=== PATIENT | female | born 1965 | race Caucasian/White ===

== ENCOUNTER → 2016-11-14 | Outpatient (CLI) | payer BC ==
--- NOTE | 2016-11-14 15:18 | MR ---
EXAMINATION TYPE: MR shoulder RT wo con DATE OF EXAM: 11/14/2016 2:02 PM COMPARISON: NONE HISTORY: Right shoulder pain x 2 years. TECHNIQUE: Multiplanar multispin echo imaging of the right shoulder was performed. FINDINGS: Rotator cuff : Full thickness partial tear is noted involving the supraspinatus tendon near its humer al insertion. This is superimposed upon thickening and heterogeneity of the supraspinatus tendon comp atible with chronic tendinopathy. Small amount of fluid is seen within the subacromial subdeltoid bur sa. The remaining rotator cuff tendons are intact. Bursa: Small amount of fluid is seen within the subacromial subdeltoid bursa Musculature: There is no muscular tear, contusion, or atrophy. Acromioclavicular joint : There is evidence of moderate AC joint arthropathy. Lateral downsloping of the acromion and subacromial spurring resulting in impingement. Osseous structures : There are no fra ctures or regions of abnormal bone marrow signal intensity. Long biceps tendon : The biceps tendon is normally situated within the bicipital groove. No complete or partial biceps tendon tear is present. Glenohumeral Joint fluid : There is no glenohumeral joint effusion. Cartilage and Bone : Mild degenerative cystic change greater humeral tuberosity. No focal hyaline car tilage defects are noted. No Hill-Sachs, reverse Hill-Sachs, or bony Bankart lesions are seen. Labrum : There are no SLAP or soft tissue Bankart lesions. No paralabral cysts are seen. OTHER FINDINGS : none IMPRESSION: 1. Full thickness partial tear is noted involving the supraspinatus tendon near its humeral insertion . This is superimposed upon thickening and heterogeneity of the supraspinatus tendon compatible with chronic tendinopathy.
== END | disposition home or self-care (01) ==
LOC: RADMRIMAIN 13:23
PROVIDERS: ATTEND Orthopaedic Surgery
DX: M75.101 Unspecified rotator cuff tear or rupture of right shoulder, not specified as traumatic (principal)

== ENCOUNTER → 2017-02-20 | Outpatient (CLI) | payer BC ==
[2017-02-20 19:41] LABS: ALT 33 U/L (9-52); AST 19 U/L (14-36); Alkaline Phosphatase 74 U/L (38-126); Anion Gap 13 mmol/L; Basophils % (A) 1 %; Blood Urea Nitrogen 14 mg/dL (7-17); CH 31.4; CHCM 34.5; Calcium 10.1 mg/dL (8.4-10.2); Carbon Dioxide 24 mmol/L (22-30); Chloride 103 mmol/L (98-107); Cholesterol 192 mg/dL (<200); Eosinophils # (A) 0.1 k/uL (0-0.7); Eosinophils % (A) 1 %; Glucose 123 mg/dL (74-99); HCT 49.3 % (34.0-46.0); HDL Cholesterol 44 mg/dL (40-60); HDW 2.66; HGB 16.6 gm/dL (11.4-16.0); Luc # (Auto) 0.09; Luc % (Auto) 1; Lymphocytes # (A) 2.6 k/uL (1.0-4.8); Lymphocytes % (A) 29 %; MCH 30.8 pg (25.0-35.0); MCHC 33.7 g/dL (31.0-37.0); MCV 91.4 fL (80.0-100.0); Mean Platelet Volume 8.1; Monocytes # (A) 0.3 k/uL (0-1.0); Monocytes % (A) 4 %; Neutrophils # (A) 5.8 k/uL (1.3-7.7); Neutrophils % (A) 65 %; Non-African American GFR(MDRD) >60 (>60 ml/min/1.73 sqM); Potassium 3.9 mmol/L (3.5-5.1); RBC 5.39 m/uL (3.80-5.40); RDW 13.6 % (11.5-15.5); Sodium 140 mmol/L (137-145); Total Bilirubin 0.7 mg/dL (0.2-1.3); Triglycerides 198 mg/dL (<150); WBC 8.9 k/uL (3.8-10.6); WBC (Perox) 9.46
== END ==
LOC: MMGSC 10:11
PROVIDERS: ATTEND Family Medicine
DX: I10 Essential (primary) hypertension (principal); E78.00 Pure hypercholesterolemia, unspecified; F10.21 Alcohol dependence, in remission
CPT/HCPCS: 36415; 80053; 80061; 84439; 84443; 85025

== ENCOUNTER → 2017-05-06 | Outpatient (CLI) | payer BC ==
[2017-05-06 18:56] LABS: Basophils # (A) 0.1 k/uL (0-0.2); Basophils % (A) 1 %; CHCM 35.2; Eosinophils # (A) 0.2 k/uL (0-0.7); Eosinophils % (A) 2 %; HCT 42.2 % (34.0-46.0); HDW 2.82; Luc # (Auto) 0.15; Luc % (Auto) 2; Lymphocytes # (A) 3.6 k/uL (1.0-4.8); Lymphocytes % (A) 37 %; MCH 31.5 pg (25.0-35.0); MCHC 35.6 g/dL (31.0-37.0); MCV 88.4 fL (80.0-100.0); Mean Platelet Volume 7.6; Monocytes # (A) 0.4 k/uL (0-1.0); Monocytes % (A) 4 %; Neutrophils # (A) 5.3 k/uL (1.3-7.7); Neutrophils % (A) 55 %; RBC 4.77 m/uL (3.80-5.40); RDW 13.5 % (11.5-15.5); WBC 9.6 k/uL (3.8-10.6); WBC (Perox) 9.41
[2017-05-06 19:06] LABS: ALT 31 U/L (9-52); AST 16 U/L (14-36); Alkaline Phosphatase 75 U/L (38-126); Amylase 43 U/L (30-110); Anion Gap 12 mmol/L; Blood Urea Nitrogen 16 mg/dL (7-17); Calcium 9.7 mg/dL (8.4-10.2); Carbon Dioxide 25 mmol/L (22-30); Chloride 106 mmol/L (98-107); Glucose 108 mg/dL (74-99); Non-African American GFR(MDRD) >60 (>60 ml/min/1.73 sqM); Potassium 4.1 mmol/L (3.5-5.1); Sodium 143 mmol/L (137-145); Total Bilirubin 0.4 mg/dL (0.2-1.3)
== END | disposition home or self-care (01) ==
LOC: MMGSC 16:45
PROVIDERS: ATTEND Family Medicine
DX: R10.12 Left upper quadrant pain (principal)
CPT/HCPCS: 36415; 80053; 82150; 83690; 85025

== ENCOUNTER → 2017-06-04 | Outpatient (CLI) | payer BC ==
--- NOTE | 2017-06-04 11:58 | US ---
EXAMINATION TYPE: US abdomen complete DATE OF EXAM: 06/04/2017 COMPARISON: NONE CLINICAL HISTORY: 52-year-old female R10.12 LUQ Pain. LEFT subcostal pain at site of scar from bariat ofe surgery, h/o colitis. TECHNIQUE: Multiple sonographic images of the abdomen are obtained. FINDINGS: Liver Length: 17.5 cm Gallbladder Wall: 0.2 cm CBD: 0.4 cm Spleen: 11.4 cm Right Kidney: 12.4 x 4.3 x 5.4 cm Left Kidney: 13.0 x 5.1 x 6.6 cm Pancreas: wnl Liver: wnl Gallbladder: wnl Evidence for sonographic Patrick's sign: no CBD: wnl Spleen: wnl Right Kidney: wnl Left Kidney: wnl Upper IVC: wnl Abd Aorta: Upper abdominal aorta is ectatic at 2.7 x 2.5 cm. The remainder is normal caliber. AGGREGATE CONVEYOR OPERATOR NOTES: No abnormality seen at LUQ area of pain IMPRESSION: 1. Ectatic upper abdominal aorta 2.7 cm. 2. Borderline hepatomegaly. 3. Otherwise, unremarkable sonographic examination of the abdomen. 4. Targeted scanning along the left upper quadrant site of pain shows no discrete sonographic abnorma lity.
== END | disposition home or self-care (01) ==
LOC: RADUSWWP 09:28
PROVIDERS: ATTEND Family Medicine
DX: I77.811 Abdominal aortic ectasia (principal); R16.0 Hepatomegaly, not elsewhere classified
CPT/HCPCS: 76700

== ENCOUNTER 2017-06-17 10:27 | Day surgery (SDC) | payer BC ==
[2017-06-13 14:07] VITALS: BMI 32.5
[~2017-06-17 10:27] MED LIST: LACTATED RINGERS 1,000 ML IV SCH; LIDOCAINE 1% 20 ML VIAL (10MG/ML) FOR IV START INTRADERMA PRN
[2017-06-17 10:39] VITALS: TEMP 98
[2017-06-17] MEDS ORDERED: LACTATED RINGERS 1,000 ML IV ONE (10:40)
[2017-06-17] MEDS ORDERED: PROPOFOL 10 MG/ML 20 ML VIAL IV ONE (11:51)
[2017-06-17] MEDS ORDERED: LIDOCAINE 1% INJ 10MG/ML (20 ML MDV) ONE (11:51)
[2017-06-17 12:10] VITALS: RESP 16
--- NOTE | 2017-06-17 12:11 | P.PCN ---
Date of Procedure: 06/17/17 Preoperative Diagnosis: Postoperative Diagnosis: Procedure(s) Performed: Procedure: Esophagogastroduodenoscopy and biopsy. Preoperative diagnosis: Chronic reflux symptoms symptomatic despite treatment with intermittent dysphagia. Postoperative diagnosis: 1. Small sliding hiatal hernia with no obvious esophagitis or complicated reflux disease. 2. Mild antral gastritis. 3. Multiple biopsies obtained from the duodenum, antrum and esophagus. Preparation sedation: Was provided by anesthesia. Brief clinical history: The patient is a 52-year-old female who is referred for this evaluation because of history of chronic gastroesophageal reflux. The patient has been on omeprazole with ongoing issues despite treatment. She has heartburn and intermittent dysphagia. This evaluation is to assess for the degree of esophagitis and rule out complicated reflux disease or other pathology. Procedure: With the patient on her left lateral decubitus position and after informed consent and adequate sedation, I passed the Olympus-GIF 160 video upper endoscope through the cricopharyngeus down the esophagus. GE junction was around 39-40 cm from the incisors and there was a very small sliding hiatal hernia with no evidence of esophagitis or complicated reflux disease. The endoscope was then passed into the stomach which was insufflated with air and inspected in detail including the retroflex view in the cardia. There was some mottling and erythema in the antrum but no ulcers or erosions. Pyloric channel , duodenal bulb, post bulbar area and descending duodenum were essentially within normal limits. However, because of her symptoms, I obtained biopsies from the duodenum in addition to biopsies from the antrum and esophagus then the endoscope was withdrawn. The patient tolerated the procedure well. Plan: The patient was reassured. Will await pathology results. She will continue antireflux diet and measures and her current therapy. Further plans based on her course and biopsy results. She will follow-up with you as planned and I will be happy to see in the office of his symptoms persist. Implants: Indications for Procedure: Operative Findings: Description of Procedure:
[2017-06-17 12:40] VITALS: BP 136/84; PULSE 66
== END 2017-06-17 12:46 | disposition home or self-care (01) ==
LOC: ORWHC2ENDO 10:27
DX: K29.50 Unspecified chronic gastritis without bleeding (principal); K44.9 Diaphragmatic hernia without obstruction or gangrene; K21.9 Gastro-esophageal reflux disease without esophagitis; I10 Essential (primary) hypertension; J45.909 Unspecified asthma, uncomplicated; F41.9 Anxiety disorder, unspecified; F32.9 Major depressive disorder, single episode, unspecified; F43.10 Post-traumatic stress disorder, unspecified; E66.9 Obesity, unspecified; F17.200 Nicotine dependence, unspecified, uncomplicated; Z79.899 Other long term (current) drug therapy
CPT/HCPCS: 88305; 88342; 43239; J2001; J2704

== ENCOUNTER → 2017-11-28 | Outpatient (CLI) | payer BC ==
[2017-11-28 20:06] LABS: Basophils # (A) 0.1 k/uL (0-0.2); Basophils % (A) 1 %; Eosinophils # (A) 0.1 k/uL (0-0.7); Eosinophils % (A) 1 %; HCT 48.2 % (34.0-46.0); HGB 15.9 gm/dL (11.4-16.0); Lymphocytes # (A) 3.3 k/uL (1.0-4.8); Lymphocytes % (A) 35 %; MCH 31.3 pg (25.0-35.0); MCHC 32.9 g/dL (31.0-37.0); MCV 95.1 fL (80.0-100.0); Mean Platelet Volume 8.5; Monocytes # (A) 0.4 k/uL (0-1.0); Monocytes % (A) 4 %; Neutrophils # (A) 5.5 k/uL (1.3-7.7); Neutrophils % (A) 57 %; Platelet Count 310 k/uL (150-450); RBC 5.07 m/uL (3.80-5.40); RDW 14.3 % (11.5-15.5); WBC 9.6 k/uL (3.8-10.6)
[2017-11-28 20:11] LABS: ALT 24 U/L (9-52); AST 17 U/L (14-36); Albumin 4.4 g/dL (3.5-5.0); Alkaline Phosphatase 75 U/L (38-126); Anion Gap 13 mmol/L; Blood Urea Nitrogen 13 mg/dL (7-17); Calcium 9.7 mg/dL (8.4-10.2); Carbon Dioxide 26 mmol/L (22-30); Chloride 103 mmol/L (98-107); Cholesterol 218 mg/dL (<200); Glucose 97 mg/dL (74-99); HDL Cholesterol 48 mg/dL (40-60); LDL Cholesterol,Calculated 129 mg/dL (0-99); Potassium 4.3 mmol/L (3.5-5.1); Sodium 142 mmol/L (137-145); Total Bilirubin 0.4 mg/dL (0.2-1.3); Total Protein 7.4 g/dL (6.3-8.2); Triglycerides 203 mg/dL (<150)
[2017-11-28 20:27] LABS: T4, Free (Free Thyroxine) 0.97 ng/dL (0.78-2.19)
[2017-11-29 02:35] LABS: Folate, Serum 3.3 ng/mL
[2017-11-29 02:36] LABS: Vitamin D 25 Hydroxy 7.4 ng/mL (30.0-100.0)
== END | disposition home or self-care (01) ==
LOC: MMGSC 12:06
PROVIDERS: ATTEND Family Medicine
DX: I10 Essential (primary) hypertension (principal); R53.83 Other fatigue; R07.89 Other chest pain
CPT/HCPCS: 36415; 80053; 80061; 82306; 82607; 82746; 84439; 84443; 85025

== ENCOUNTER → 2018-02-17 | Outpatient (CLI) | payer BC ==
[2018-02-18 02:08] LABS: Vitamin D 25 Hydroxy 46.2 ng/mL (30.0-100.0)
[2018-02-18 02:09] LABS: Folate, Serum 7.9 ng/mL
== END | disposition home or self-care (01) ==
LOC: MMGSC 15:38
PROVIDERS: ATTEND Family Medicine
DX: E55.9 Vitamin D deficiency, unspecified (principal); I10 Essential (primary) hypertension; G43.909 Migraine, unspecified, not intractable, without status migrainosus
CPT/HCPCS: 36415; 82306; 82607; 82746; 83735

== ENCOUNTER → 2018-06-12 | Outpatient (CLI) | payer BC ==
--- NOTE | 2018-06-16 13:28 | MM ---
Reason for exam: screening (asymptomatic). Last mammogram was performed 2 years and 10 months ago. History: Patient is postmenopausal and has history of other cancer at age 46. Physical Findings: A clinical breast exam by your physician is recommended on an annual basis and results should be correlated with mammographic findings. MG Screening Mammo w CAD Bilateral CC and MLO view(s) were taken. Prior study comparison: August 16, 2015, bilateral MG screening mammo w CAD. April 21, 2012, CAD bilateral diagnostic mammogram. The breast tissue is heterogeneously dense. This may lower the sensitivity of mammography. Focal asymmetry x 2 centrally, few sites. ASSESSMENT: Incomplete: need additional imaging evaluation, BI-RAD 0 RECOMMENDATION: Special view mammogram of both breasts. If lesion persists on supplemental views, image directed ultrasound is recommended. [facility] will attempt to contact patient to return for supplemental views and ultrasound if indicated.
== END | disposition home or self-care (01) ==
LOC: RADMAMWWP 12:53
PROVIDERS: ATTEND Family Medicine
DX: Z12.31 Encounter for screening mammogram for malignant neoplasm of breast (principal)
CPT/HCPCS: 77067

== ENCOUNTER → 2018-06-25 | Outpatient (CLI) | payer BC ==
--- NOTE | 2018-06-25 08:47 | MM ---
Reason for exam: additional evaluation requested from abnormal screening. Last mammogram was performed less than 1 month ago. History: Patient is postmenopausal and has history of other cancer at age 46. Physical Findings: Nurse did not find any significant physical abnormalities on exam. MG Work Up Mamm w CAD BILAT Bilateral CC and MLO view(s) were taken. Prior study comparison: June 12, 2018, bilateral MG screening mammo w CAD. August 16, 2015, bilateral MG screening mammo w CAD. The breast tissue is heterogeneously dense. This may lower the sensitivity of mammography. There is no discrete abnormality including area of concern. No significant new findings when compared with previous films. These results were verbally communicated with the patient and result sheet given to the patient on 06/25/18. ASSESSMENT: Negative, BI-RAD 1 RECOMMENDATION: Return to routine screening mammogram schedule for both breasts.
== END | disposition home or self-care (01) ==
LOC: RADMAMWWP 07:54
PROVIDERS: ATTEND Family Medicine
DX: R92.8 Other abnormal and inconclusive findings on diagnostic imaging of breast (principal)
CPT/HCPCS: 77066

== ENCOUNTER → 2018-11-30 | Outpatient (CLI) | payer BC ==
[2018-11-30 14:12] LABS: Basophils # (A) 0.1 k/uL (0-0.2); Basophils % (A) 1 %; Eosinophils # (A) 0.2 k/uL (0-0.7); Eosinophils % (A) 2 %; HCT 47.1 % (34.0-46.0); HGB 15.8 gm/dL (11.4-16.0); Lymphocytes # (A) 3.7 k/uL (1.0-4.8); Lymphocytes % (A) 34 %; MCH 30.6 pg (25.0-35.0); MCHC 33.4 g/dL (31.0-37.0); MCV 91.5 fL (80.0-100.0); Monocytes # (A) 0.4 k/uL (0-1.0); Monocytes % (A) 4 %; Neutrophils # (A) 6.3 k/uL (1.3-7.7); Neutrophils % (A) 59 %; Platelet Count 262 k/uL (150-450); RBC 5.15 m/uL (3.80-5.40); RDW 13.2 % (11.5-15.5); WBC 10.8 k/uL (3.8-10.6)
[2018-11-30 21:22] LABS: Albumin 4.8 g/dL (3.80-4.90); Albumin/Globulin Ratio 2.18 (1.60-3.17); Anion Gap 9.5 mmol/L (4.00-12.00); Calcium 9.5 mg/dL (8.7-10.3); Carbon Dioxide 23.5 mmol/L (21.6-31.8); Globulin 2.2 g/dL (1.6-3.3); Potassium 3.8 mmol/L (3.5-5.5); Total Bilirubin 0.3 mg/dL (0.3-1.2)
[2018-12-03 03:39] LABS: Hemoglobin A1C 7.2 % (4.0-6.0)
== END | disposition home or self-care (01) ==
LOC: LABWHC1 11:40
PROVIDERS: ATTEND Psychiatry & Neurology Neurology
DX: G43.711 Chronic migraine without aura, intractable, with status migrainosus (principal); G93.2 Benign intracranial hypertension; M54.81 Occipital neuralgia; R73.09 Other abnormal glucose
CPT/HCPCS: 36415; 80053; 83036; 85025

== ENCOUNTER → 2018-12-31 | Outpatient (CLI) | payer BC ==
--- NOTE | 2018-12-31 09:07 | US ---
EXAMINATION TYPE: US abdomen complete DATE OF EXAM: 12/31/2018 COMPARISON: US, CT CLINICAL HISTORY: R10.9 Abdominal pain. Right flank pain radiating to right groin; RUQ pain, colitis, lap band surgery with reversal/ mesh insertion EXAM MEASUREMENTS: Liver Length: 17.8 cm Gallbladder Wall: 0.2 cm CBD: 0.4 cm Spleen: 10.1 cm Right Kidney: 12.7 x 7.4 x 5.5 cm Left Kidney: 12.6 x 5.5 x 5.8 cm Pancreas: wnl Liver: fatty liver as is hyperechoic to right renal cortex; small area of focal sparing noted near g allbladder Gallbladder: wnl Evidence for sonographic Patrick's sign: no CBD: wnl Spleen: wnl, vessel velásquez are hyperechoic at hilum with some calcifications. Right Kidney: Column of Al is noted from cortex to hilum in multiple views Left Kidney: No hydronephrosis; benign junctional wedge fat defect is seen at periphery in lower amadeo e Upper IVC: wnl Abd Aorta: upper limits of normal for size in upper aorta. IMPRESSION: 1. Findings most compatible with hepatic steatosis and focal fatty sparing that could be confirmed wi th CT with contrast. This is new from the prior of 06/04/2017. 2. Again there is ectasia of the upper abdominal aorta as seen on the prior exam.
--- NOTE | 2018-12-31 09:25 | US ---
EXAMINATION TYPE: US pelvic complete DATE OF EXAM: 12/31/2018 COMPARISON: CT CLINICAL HISTORY: R10.9 Abdominal pain. Right flank pain radiating to RLQ; colitis; TECHNIQUE: Transabdominal (TA). Transabdominal sonographic images of the pelvis were acquired. Date of LMP: approximately age 40 EXAM MEASUREMENTS: Uterus: 7.7 x 4.3 x 2.7 cm Endometrial Stripe: 0.5 cm Right Ovary: 3.1 x 2.2 x 1.5 cm Left Ovary: 2.0 x 2.2 x 1.1 cm 1. Uterus: Anteverted; small Nabothian Cyst in cervix = 0.9 x 1.3 x 0.6cm 2. Endometrium: wnl for post menopausal patient 3. Right Ovary: wnl; color flow and PW Doppler is seen in right ovary to assess for radiating pain 4. Left Ovary: wnl 5. Bilateral Adnexa: wnl 6. Posterior cul-de-sac: wnl IMPRESSION: Unremarkable pelvic ultrasound. Endometrial thickness is within normal limits for a postm enopausal female.
== END | disposition home or self-care (01) ==
LOC: RADUSWWP 07:00
PROVIDERS: ATTEND Family Medicine
DX: I77.811 Abdominal aortic ectasia (principal)
CPT/HCPCS: 76700; 76856

== ENCOUNTER 2019-01-05 06:53 | Day surgery (SDC) | payer BC ==
[2019-01-01 12:14] VITALS: BMI 34.8
[~2019-01-05 06:53] MED LIST changes: -LIDOCAINE 1% 20 ML VIAL (10MG/ML) FOR IV START INTRADERMA PRN
[2019-01-05] MEDS ORDERED: LACTATED RINGERS 1,000 ML IV ONE (07:09)
[2019-01-05 07:21] VITALS: TEMP 97.3
[2019-01-05 07:23] LABS: Glucose,Whole Blood 173 mg/dL (75-99)
[2019-01-05] MEDS ORDERED: PROPOFOL 10 MG/ML 20 ML VIAL IV ONE (08:23)
[2019-01-05 09:01] VITALS: RESP 16
--- NOTE | 2019-01-05 09:01 | P.PCN ---
Date of Procedure: 01/05/19 Procedure(s) Performed: Procedure: Colonoscopy and biopsy and polypectomy. Preoperative diagnosis: Screening for neoplasia. Postoperative diagnosis: 1. Small sigmoid polyp snared but no large polyps or cancer. 2. Grade 2-3 internal hemorrhoids without bleeding at the time of this exam. 3. Biopsies obtained from the right colon because of her chronic diarrhea. Preparation: HalfLytely prep. Sedation: Was provided by anesthesia. Brief clinical history: The patient is a 53-year-old female who is scheduled for this evaluation for screening for neoplasia. She had a prior exam 6 or 7 years ago. The patient has chronic diarrhea and believes she had colitis but is not on any treatment. She has intermittent rectal bleeding which she believes is related to hemorrhoids. Procedure: With the patient on her left lateral decubitus position and after informed consent and adequate sedation, the perianal area was inspected and it did not show any fissures or fistulas. There were no masses felt on digital rectal examination. The Olympus CFH 190L video colonoscope was then inserted in the rectum in the usual fashion and advanced to the cecum. The mucosa appeared healthy. There was a small polyp in the midsigmoid which I snared and retrieved by suction. No obvious diverticular disease or other pathology. I obtained biopsies from the right colon to rule out microscopic colitis. I retroflexed the endoscope in the rectum before the endoscope was withdrawn. Grade 2-3 internal hemorrhoids were noted with no evidence of bleeding. The patient tolerated the procedure well. Plan: We will await pathology results. I anticipate repeating this examination in around 5 years. She will follow-up with you as planned.
[2019-01-05 09:25] VITALS: BP 109/71; PULSE 65
== END 2019-01-05 09:53 | disposition home or self-care (01) ==
LOC: ORWHC2ENDO 06:53
DX: Z12.11 Encounter for screening for malignant neoplasm of colon (principal); D12.5 Benign neoplasm of sigmoid colon; K64.8 Other hemorrhoids; Z88.8 Allergy status to other drugs, medicaments and biological substances; I10 Essential (primary) hypertension; E78.5 Hyperlipidemia, unspecified; J45.909 Unspecified asthma, uncomplicated; F17.210 Nicotine dependence, cigarettes, uncomplicated; E11.9 Type 2 diabetes mellitus without complications; M19.90 Unspecified osteoarthritis, unspecified site; Z79.899 Other long term (current) drug therapy
CPT/HCPCS: 88305; 45380; 45385; J2704

== ENCOUNTER 2019-07-10 13:14 | Observation (INO) | payer BC ==
[2019-07-10] MEDS ORDERED: ASPIRIN 81 MG PO STA (15:18)
[2019-07-10 15:50] LABS: Basophils # (A) 0.1 k/uL (0-0.2); Basophils % (A) 1 %; Eosinophils # (A) 0.2 k/uL (0-0.7); Eosinophils % (A) 2 %; HCT 45.3 % (34.0-46.0); HGB 15.3 gm/dL (11.4-16.0); Lymphocytes # (A) 3.6 k/uL (1.0-4.8); Lymphocytes % (A) 34 %; MCH 30.3 pg (25.0-35.0); MCHC 33.7 g/dL (31.0-37.0); MCV 89.7 fL (80.0-100.0); Mean Platelet Volume 7.1; Monocytes # (A) 0.4 k/uL (0-1.0); Monocytes % (A) 4 %; Neutrophils # (A) 5.9 k/uL (1.3-7.7); Neutrophils % (A) 57 %; Platelet Count 281 k/uL (150-450); RBC 5.05 m/uL (3.80-5.40); RDW 12.7 % (11.5-15.5); WBC 10.4 k/uL (3.8-10.6)
[2019-07-10 15:56] LABS: ALT 22 U/L (9-52); AST 26 U/L (14-36); African American GFR (CKD) >90 (>60 ml/min/1.73 sqM); Albumin 4.5 g/dL (3.5-5.0); Alkaline Phosphatase 65 U/L (38-126); Anion Gap 8 mmol/L; Blood Urea Nitrogen 15 mg/dL (7-17); Calcium 9.6 mg/dL (8.4-10.2); Carbon Dioxide 28 mmol/L (22-30); Chloride 104 mmol/L (98-107); Glucose 119 mg/dL (74-99); Magnesium 1.9 mg/dL (1.6-2.3); Potassium 4.5 mmol/L (3.5-5.1); Sodium 140 mmol/L (137-145); Total Bilirubin 0.6 mg/dL (0.2-1.3); Total Protein 7.5 g/dL (6.3-8.2)
[2019-07-10 16:01] LABS: INR 0.9 (<1.2); Partial Thromboplastin Time 27.3 sec (22.0-30.0); Prothrombin Time 9.5 sec (9.0-12.0)
--- NOTE | 2019-07-10 16:20 | ED ---
General Adult HPI - General Chief complaint: Chest Pain Stated complaint: Chest pain Time Seen by Provider: 07/10/19 14:01 Source: patient Mode of arrival: ambulatory Limitations: no limitations - History of Present Illness Initial comments: Dictation was produced using [employer] dictation software. please excuse any grammatical, word or spelling errors. Chief Complaint: 84-year-old female with asthma, hypertension presents with chest pain. History of Present Illness: Patient's 54-year-old female presents with chief plate of chest pain. Patient states she's been having intermittent episodes all week. She describes the pain as substernal with dull squeezing like characteristic. She denies any exacerbating or mitigating factors. His report that sometimes these do occur at times of exertion. She has a history of intracranial tumor. She also had an episode of double vision. States the symptoms of her chest pain radiating to her left upper extremity. She has any symptoms at this time. Obscured with dietetic technician registered and was recommended to get a heart catheterization however she did not consent to it yet. The ROS documented in this emergency department record has been reviewed and confirmed by me. Those systems with pertinent positive or negative responses have been documented in the HPI. All other systems are other negative and/or noncontributory. PHYSICAL EXAM: General Impression: Alert and oriented x3, not in acute distress HEENT: Normocephalic atraumatic, extra-ocular movements intact, pupils equal and reactive to light bilaterally, mucous membranes moist. Cardiovascular: Heart regular rate and rhythm, S1&S2 audible, no murmurs, rubs or gallops Chest: Lungs clear to auscultation bilaterally, no rhonchi, no wheeze, no rales Abdomen: Bowel sounds present, abdomen soft, non-tender, non-distended, no orga nomegaly Musculoskeletal: Pulses present and equal in all extremities, no peripheral edema Motor: no focal deficits noted Neurological: CN II-XII grossly intact, no focal motor or sensory deficits noted Skin: Intact with no visualized rashes Psych: Normal affect and mood ED course: 54 y Old female with chief complaint of chest pain. Patient's clinical presentation concerning for acute coronary syndrome. As upon arrival are within acceptable limits. EKG does not show any signs of ST segment elevation MN or ischemia. Laboratory evaluation obtained. CBC, coag panel, metabolic panel is obtained showing no acute process. Initial troponin is negative. Patient reevaluated at bedside after several hours with no return of chest pain at this time. The patient risk factors and clinical presentation I believe patient would benefit from inpatient observation admission to pursue troponins and cardiac consultation. Chest x-rays reviewed by myself showing no acute processes. Pending radiology review. EKG interpretation: Ventricular rate 75, normal sinus rhythm, MA interval 176, QS 94, QTC 464. No MA prolongation, no QTC prolongation, no ST or T-wave changes noted. Overall, this EKG is unremarkable - Related Data Home Medications Medication Instructions Recorded Confirmed Albuterol Inhaler [Ventolin Hfa 2 puff INHALATION RT-Q6H PRN 05/21/16 07/10/19 Inhaler] Fluticasone/Salmeterol [Advair 2 puff PO DAILY 05/21/16 07/10/19 250-50 Diskus] Lisinopril [Zestril] 20 mg PO DAILY 05/21/16 07/10/19 Lovastatin [Mevacor] 20 mg PO HS 05/21/16 07/10/19 Triamterene-Hctz 37.5-25Mg 1 cap PO DAILY 05/21/16 07/10/19 [Dyazide 37.5-25 Capsule] hydrOXYzine HCL [Atarax] 25 mg PO BID PRN 05/21/16 07/10/19 [id number] 2 each PO Q6HR PRN 01/01/19 07/10/19 [Excedrin] Cyanocobalamin (Vitamin B-12) 5,000 mcg PO DAILY 01/01/19 07/10/19 [Vitamin B-12] Ranitidine HCl [Zantac] 150 mg PO BID 01/01/19 07/10/19 metFORMIN HCL [Glucophage] 500 mg PO BID 01/01/19 07/10/19 Allergies Allergy/AdvReac Type Severity Reaction Status Date / Time banana Allergy Unknown Garcias Verified 07/10/19 14:21 Throat kiwi Allergy Unknown Garcias Verified 07/10/19 14:21 Throat Review of Systems ROS Statement: Those systems with pertinent positive or pertinent negative responses have been documented in the HPI. ROS Other: All systems not noted in ROS Statement are negative. Past Medical History Past Medical History: Asthma, GERD/Reflux, Hypertension Additional Past Medical History / Comment(s): hx colitis, enlarged aorta History of Any Multi-Drug Resistant Organisms: None Reported Past Surgical History: Bladder Surgery, Hernia Repair, Orthopedic Surgery, Tubal Ligation Additional Past Surgical History / Comment(s): lap band with removal, left foot, right middle finger, incisional and hiatal hernia repair Past Anesthesia/Blood Transfusion Reactions: Postoperative Nausea & Vomiting (PONV) Past Psychological History: Anxiety, Depression, PTSD Smoking Status: Current every day smoker Past Alcohol Use History: Unable to Obtain Past Drug Use History: Marijuana - Past Family History Mother Family Medical History: Unable to Obtain Additional Family Medical History / Comment(s): KIDNEY PROBLEMS Father Family Medical History: Unable to Obtain General Exam Limitations: no limitations Course Vital Signs 07/10/19 07/10/19 13:25 16:29 Temperature 98 F Pulse Rate 78 68 Respiratory 18 16 Rate Blood Pressure 147/93 128/95 O2 Sat by Pulse 97 96 Oximetry Medical Decision Making - Lab Data Result diagrams: 07/10/19 14:50 07/10/19 14:50 Lab Results 07/10/19 07/10/19 07/10/19 Range/Units 14:50 14:50 14:50 WBC 10.4 (3.8-10.6) k/uL RBC 5.05 (3.80-5.40) m/uL Hgb 15.3 (11.4-16.0) gm/dL Hct 45.3 (34.0-46.0) % MCV 89.7 (80.0-100.0) fL MCH 30.3 (25.0-35.0) pg MCHC 33.7 (31.0-37.0) g/dL RDW 12.7 (11.5-15.5) % Plt Count 281 (150-450) k/uL Neutrophils % 57 % Lymphocytes % 34 % Monocytes % 4 % Eosinophils % 2 % Basophils % 1 % Neutrophils # 5.9 (1.3-7.7) k/uL Lymphocytes # 3.6 (1.0-4.8) k/uL Monocytes # 0.4 (0-1.0) k/uL Eosinophils # 0.2 (0-0.7) k/uL Basophils # 0.1 (0-0.2) k/uL PT 9.5 (9.0-12.0) sec INR 0.9 (<1.2) APTT 27.3 (22.0-30.0) sec Sodium 140 (137-145) mmol/L Potassium 4.5 (3.5-5.1) mmol/L Chloride 104 (98-107) mmol/L Carbon Dioxide 28 (22-30) mmol/L Anion Gap 8 mmol/L BUN 15 (7-17) mg/dL Creatinine 0.62 (0.52-1.04) mg/dL Est GFR (CKD-EPI)AfAm >90 (>60 ml/min/1.73 sqM) Est GFR (CKD-EPI)NonAf >90 (>60 ml/min/1.73 sqM) Glucose 119 H (74-99) mg/dL Calcium 9.6 (8.4-10.2) mg/dL Magnesium 1.9 (1.6-2.3) mg/dL Total Bilirubin 0.6 (0.2-1.3) mg/dL AST 26 (14-36) U/L ALT 22 (9-52) U/L Alkaline Phosphatase 65 (38-126) U/L Troponin I (0.000-0.034) ng/mL Total Protein 7.5 (6.3-8.2) g/dL Albumin 4.5 (3.5-5.0) g/dL Lipase 39 (23-300) U/L 07/10/19 Range/Units 14:50 WBC (3.8-10.6) k/uL RBC (3.80-5.40) m/uL Hgb (11.4-16.0) gm/dL Hct (34.0-46.0) % MCV (80.0-100.0) fL MCH (25.0-35.0) pg MCHC (31.0-37.0) g/dL RDW (11.5-15.5) % Plt Count (150-450) k/uL Neutrophils % % Lymphocytes % % Monocytes % % Eosinophils % % Basophils % % Neutrophils # (1.3-7.7) k/uL Lymphocytes # (1.0-4.8) k/uL Monocytes # (0-1.0) k/uL Eosinophils # (0-0.7) k/uL Basophils # (0-0.2) k/uL PT (9.0-12.0) sec INR (<1.2) APTT (22.0-30.0) sec Sodium (137-145) mmol/L Potassium (3.5-5.1) mmol/L Chloride (98-107) mmol/L Carbon Dioxide (22-30) mmol/L Anion Gap mmol/L BUN (7-17) mg/dL Creatinine (0.52-1.04) mg/dL Est GFR (CKD-EPI)AfAm (>60 ml/min/1.73 sqM) Est GFR (CKD-EPI)NonAf (>60 ml/min/1.73 sqM) Glucose (74-99) mg/dL Calcium (8.4-10.2) mg/dL Magnesium (1.6-2.3) mg/dL Total Bilirubin (0.2-1.3) mg/dL AST (14-36) U/L ALT (9-52) U/L Alkaline Phosphatase (38-126) U/L Troponin I <0.012 (0.000-0.034) ng/mL Total Protein (6.3-8.2) g/dL Albumin (3.5-5.0) g/dL Lipase (23-300) U/L Disposition Clinical Impression: Chest pain Disposition: ADMITTED IP TO THIS HOSP Condition: Fair Referrals: Antonette Ruiz MD [Primary Care Provider] - 1-2 days Decision Time: 16:54
[2019-07-10] MEDS ORDERED: NITROGLYCERIN SL TABS 0.4 MG TAB SUBLINGUAL PRN (16:52)
--- NOTE | 2019-07-10 17:12 | XR ---
EXAMINATION TYPE: XR chest 2V DATE OF EXAM: 07/10/2019 COMPARISON: None HISTORY: 54-year-old female with chest pain TECHNIQUE: PA and lateral views FINDINGS: The cardiomediastinal silhouette, aorta, and pulmonary vasculature are within normal limits. Some str ofelia atelectasis is noted. No consolidation or pleural effusion. IMPRESSION: Strandy atelectasis. No acute process seen.
[2019-07-10] MEDS ORDERED: hydrOXYzine HCL 25 MG TAB PO PRN (17:26)
[2019-07-10] MEDS ORDERED: ASPIRIN-ACET-CAFF 250-250-65MG 1 EACH TAB PO PRN (17:26)
[2019-07-10] MEDS ORDERED: ACETAMINOPHEN TAB 325 MG TAB PO PRN (17:27)
[2019-07-10] MEDS ORDERED: NALOXONE 0.4 MG/ML 1 ML VIAL IV PRN (17:27)
[2019-07-10] MEDS ORDERED: ALBUTEROL NEBULIZED 2.5 MG/3 ML INHALATION PRN (17:31)
--- NOTE | 2019-07-10 17:32 | P.HPIM ---
History of Present Illness H&P Date: 07/10/19 Chief Complaint: Chest pain 54-year-old female with PMH of fibromyalgia, hypertension, diabetes mellitus, asthma, cavernous angioma in the right temporal lobe, pseudotumor cerebri presents to the ED for chest pain. Patient reports chest pain that has been progressively getting worse, on and off over the past year. Patient reports experiencing this pain several times on a daily basis. Pain is left-sided, stabbing in nature, 4 out of 10 in severity. Chest pain is also described as chest pressure and tightness. Pain occasionally radiates to the left arm and through the back. Patient reports that the pain is associated with palpitations. Pain is also associated with lightheadedness, sweating and feeling hot. Patient reports chest pain is not aggravated with exertion. Patient states that she has woke up with this pain in the past. Patient has seen Dr. Perez in the outpatient setting for workup of her chest pain. She has undergone echocardiogram and stress test within the last 6 months to one year that she reports to be negative. Dr. Garcia at advised that the patient undergo cardiac catheterization but patient refused at that time due to close relative that from a burst vein during cardiac catheterization. Patient reports an episode of double vision today as well. Patient reports headaches, chronic in nature related to migraines. She reports lower extremity edema that improves with lower extremity elevation. She denies any nausea or vomiting. No fever or chills. Patient reports a cough productive of yellow sputum, associated with smoker's cough. She denies shortness of breath or palpitations. No changes in urination or bowel habits. Denies any changes in appetite or weight. No numbness/weakness/tingling of the extremit ies. Past Medical History Past Medical History: Asthma, GERD/Reflux, Hypertension Additional Past Medical History / Comment(s): hx colitis, enlarged aorta History of Any Multi-Drug Resistant Organisms: None Reported Past Surgical History: Bladder Surgery, Hernia Repair, Orthopedic Surgery, Tubal Ligation Additional Past Surgical History / Comment(s): lap band with removal, left foot, right middle finger, incisional and hiatal hernia repair Past Anesthesia/Blood Transfusion Reactions: Postoperative Nausea & Vomiting (PONV) Past Psychological History: Anxiety, Depression, PTSD Smoking Status: Current every day smoker Past Alcohol Use History: Unable to Obtain Past Drug Use History: Marijuana - Past Family History Mother Family Medical History: Unable to Obtain Additional Family Medical History / Comment(s): KIDNEY PROBLEMS Father Family Medical History: Unable to Obtain Medications and Allergies Home Medications Medication Instructions Recorded Confirmed Type Albuterol Inhaler [Ventolin Hfa 2 puff INHALATION RT-Q6H PRN 05/21/16 07/10/19 History Inhaler] Fluticasone/Salmeterol [Advair 2 puff PO DAILY 05/21/16 07/10/19 History 250-50 Diskus] Lisinopril [Zestril] 20 mg PO DAILY 05/21/16 07/10/19 History Lovastatin [Mevacor] 20 mg PO HS 05/21/16 07/10/19 History Triamterene-Hctz 37.5-25Mg 1 cap PO DAILY 05/21/16 07/10/19 History [Dyazide 37.5-25 Capsule] hydrOXYzine HCL [Atarax] 25 mg PO BID PRN 05/21/16 07/10/19 History Cebrrde-Sfuv-Cymy [id number] 2 each PO Q6HR PRN 01/01/19 07/10/19 History [Excedrin] Cyanocobalamin (Vitamin B-12) 5,000 mcg PO DAILY 01/01/19 07/10/19 History [Vitamin B-12] Ranitidine HCl [Zantac] 150 mg PO BID 01/01/19 07/10/19 History metFORMIN HCL [Glucophage] 500 mg PO BID 01/01/19 07/10/19 History Allergies Allergy/AdvReac Type Severity Reaction Status Date / Time banana Allergy Unknown Garcias Verified 07/10/19 14:21 Throat kiwi Allergy Unknown Garcias Verified 07/10/19 14:21 Throat Physical Exam Vitals: Vital Signs Temp Pulse Resp BP Pulse Ox 07/10/19 16:29 68 16 128/95 96 07/10/19 13:25 98 F 78 18 147/93 97 Intake and Output 07/10/19 07/10/19 07/10/19 06:59 14:59 22:59 Other: Weight 102.965 kg Results CBC & Chem 7: 07/10/19 14:50 07/10/19 14:50 Labs: Abnormal Lab Results - Last 24 Hours (Table) 09/14/19 Range/Units 14:50 Glucose 119 H (74-99) mg/dL Assessment and Plan Assessment: Assessment and Plan Chest pain rule out acute coronary syndrome Migraines Pseudotumor cerebri Hypertension Diabetes mellitus Asthma Troponin less than 0.012 with EKG showed normal sinus rhythm. Plans: Start aspirin. Continue lovastatin. Telemetry monitoring. Follow cardiology consultation. Trend troponin/EKG to rule out ACS. Plans: Excedrin as needed for headache. Plans: Follows Dr. Kearns, neurology in the outpatient setting. Recently taken off of Diamox. Plans: Resume lisinopril. Plans: Insulin sliding scale. Regular Accu-Cheks. Hypoglycemic precautions. Plans: Albuterol neb as needed for shortness of breath and wheezing. DVT prophylaxis: [SCD] Discussed with: [Patient] Anticipated discharge: [1-2 days] Anticipated discharge place: [Home] A total of [45] minutes was spent on the care of this complex patient more than 50% of the time was spent in counseling and care coordination. Patient makes Christopher decision-maker in the case that she can't make decisions for himself. Patient reports wanting to remain full code.
[2019-07-10] MEDS: INSULIN ASPART (NovoLOG) 100 UNIT/ML VIAL SQ SCH ×2 (19:02→20:05)
[2019-07-10 19:38] LABS: Glucose,Whole Blood 142 mg/dL (75-99)
[2019-07-10] MEDS ORDERED: ATORVASTATIN 10 MG TAB PO SCH (21:00)
[2019-07-11 03:24] LABS: Cholesterol 164 mg/dL (<200); HDL Cholesterol 37 mg/dL (40-60); LDL Cholesterol,Calculated 73 mg/dL (0-99); Triglycerides 272 mg/dL (<150)
[2019-07-11 06:48] LABS: Glucose,Whole Blood 167 mg/dL (75-99)
[2019-07-11] MEDS: INSULIN ASPART (NovoLOG) 100 UNIT/ML VIAL SQ SCH ×2 (08:01→11:29)
[2019-07-11 08:06] VITALS: RESP 16
[2019-07-11] MEDS ORDERED: LISINOPRIL 20 MG TAB PO SCH (09:00)
[2019-07-11] MEDS ORDERED: ASPIRIN 325 MG TAB PO SCH (09:00)
[2019-07-11] MEDS ORDERED: TRIAMTERENE-HCTZ 37.5-25MG 1 EACH CAP PO SCH (09:00)
[2019-07-11 11:28] LABS: Glucose,Whole Blood 123 mg/dL (75-99)
--- NOTE | 2019-07-11 12:11 | P.DS ---
Providers Date of admission: 07/10/19 16:52 Expected date of discharge: 07/11/19 Attending physician: Adriane Medrano MD Consults: 07/10/19 16:52 Consult Physician Urgent Consulting Provider: Julián Garcia Consult Reason/Comments: chest pain Do you want consulting provider notified?: Yes Primary care physician: [facility] Course: 54-year-old female with PMH of fibromyalgia, hypertension, diabetes mellitus, asthma, cavernous angioma in the right temporal lobe, pseudotumor cerebri presents to the ED for chest pain. Patient reports chest pain that has been progressively getting worse, on and off over the past year. Patient reports experiencing this pain several times on a daily basis. Pain is left-sided, stabbing in nature, 4 out of 10 in severity. Chest pain is also described as chest pressure and tightness. Pain occasionally radiates to the left arm and through the back. Patient reports that the pain is associated with palpitations. Pain is also associated with lightheadedness, sweating and feeling hot. Patient reports chest pain is not aggravated with exertion. Patient states that she has woke up with this pain in the past. Patient has seen Dr. Perez in the outpatient setting for workup of her chest pain. She has undergone echocardiogram and stress test within the last 6 months to one year that she reports to be negative. Dr. Garcia at advised that the patient undergo cardiac catheterization but patient refused at that time due to close relative that from a burst vein during cardiac catheterization. Patient rep orts an episode of double vision today as well. Patient reports headaches, chronic in nature related to migraines. She reports lower extremity edema that improves with lower extremity elevation. She denies any nausea or vomiting. No fever or chills. Patient reports a cough productive of yellow sputum, associated with smoker's cough. She denies shortness of breath or palpitations. No changes in urination or bowel habits. Denies any changes in appetite or weight. No numbness/weakness/tingling of the extremities. Troponin was less than 0.0123 with EKG showing normal sinus rhythm. Chest x- ray showed no acute process. Cardiology was consulted and patient was evaluated, recommended stress test in the morning the patient said that she would rather go home. Cardiology then agreed that she could follow-up with Dr. Perez in the clinic for outpatient stress. Patient was seen and examined. No acute events overnight. Patient reports one episode of double vision that happened on the day of presentation. Patient was standing when it happened. She had previously experienced this in the past, was seen by her neurologist Dr. Kearns and ophthalmology with no findings. She denies any chest pain, shortness of breath or palpitations. No dizziness, numbness/weakness/tingling of the extremities. General: [non toxic], [no distress], [appears at stated age] Derm: [warm], [dry] Head: [atraumatic], [normocephalic], [symmetric] Eyes: [EOMI], [no lid lag], [anicteric sclera] Mouth: [no lip lesion], [mucus membranes moist] Cardiovascular: [S1S2 reg], [no murmur], [positive DP pulse bilateral] Lungs: [CTA bilateral], [no rhonchi, no rales] , [no accessory muscle use] Abdominal: [soft], [ nontender to palpation], [no guarding], [no appreciable organomegaly] Ext: [no gross muscle atrophy], [no edema], [no contractures] Neuro: [ CN II-XI grossly intact], [no focal neuro deficits] Psych: [Alert], [oriented], [appropriate affect] Assessment and Plan Chest pain rule out acute coronary syndrome Blurry vision Migraines Pseudotumor cerebri Hypertension Diabetes mellitus Asthma Troponin less than 0.012 3 with EKG showed normal sinus rhythm. Acute coronary syndrome ruled out. Plans: Start aspirin. Continue lovastatin. Telemetry monitoring. Cardiology consulted, recommends follow-up with Dr. Perez in the outpatient setting for possible stress or cath. Pupils are equal and reactive to light. Blurry vision resolved even prior to admission. Plans: Recommend that patient see Dr. Kearns for further management or workup. Plans: Excedrin as needed for headache. Plans: Follows Dr. Kearns, neurology in the outpatient setting. Recently taken off of Diamox. Plans: Resume lisinopril. Plans: Insulin sliding scale. Regular Accu-Cheks. Hypoglycemic precautions. Plans: Albuterol neb as needed for shortness of breath and wheezing. [Patient is admitted for chest pain. ACS ruled out. No symptoms at discharge. Advised to follow-up with PCP within 3 days of discharge. Follow-up with cardiology within 1 week of discharge. Follow-up with neurology Dr. Kearns within 1 week of discharge. Advised to go to the ED or call 911 for worsening chest pain, shortness of breath or palpitations, dizziness or blurry vision. Patient verbalized understanding of the plan.] Pertinent Studies: Chest x-ray Patient Condition at Discharge: Stable Plan - Discharge Summary Discharge Rx Participant: No New Discharge Prescriptions: New Aspirin 325 mg PO DAILY #30 tab Nitroglycerin Sl Tabs [Nitrostat] 0.4 mg SUBLINGUAL Q5M PRN #10 tab PRN Reason: Chest Pain Continue Triamterene-Hctz 37.5-25Mg [Dyazide 37.5-25 Capsule] 1 cap PO DAILY hydrOXYzine HCL [Atarax] 25 mg PO BID PRN PRN Reason: Itching Lovastatin [Mevacor] 20 mg PO HS Lisinopril [Zestril] 20 mg PO DAILY Fluticasone/Salmeterol [Advair 250-50 Diskus] 2 puff PO DAILY Albuterol Inhaler [Ventolin Hfa Inhaler] 2 puff INHALATION RT-Q6H PRN PRN Reason: Shortness Of Breath Ptmhadv-Yxoj-Azkr 290-203-40Na [Excedrin] 2 each PO Q6HR PRN PRN Reason: Pain metFORMIN HCL [Glucophage] 500 mg PO BID Ranitidine HCl [Zantac] 150 mg PO BID Cyanocobalamin (Vitamin B-12) [Vitamin B-12] 5,000 mcg PO DAILY Discharge Medication List Albuterol Inhaler [Ventolin Hfa Inhaler] 2 puff INHALATION RT-Q6H PRN 05/21/16 [History] Fluticasone/Salmeterol [Advair 250-50 Diskus] 2 puff PO DAILY 05/21/16 [History] Lisinopril [Zestril] 20 mg PO DAILY 05/21/16 [History] Lovastatin [Mevacor] 20 mg PO HS 05/21/16 [History] Triamterene-Hctz 37.5-25Mg [Dyazide 37.5-25 Capsule] 1 cap PO DAILY 05/21/16 [History] hydrOXYzine HCL [Atarax] 25 mg PO BID PRN 05/21/16 [History] Lsnhcro-Aksa-Dqzm [id number] [Excedrin] 2 each PO Q6HR PRN 01/01/19 [History] Cyanocobalamin (Vitamin B-12) [Vitamin B-12] 5,000 mcg PO DAILY 01/01/19 [History] Ranitidine HCl [Zantac] 150 mg PO BID 01/01/19 [History] metFORMIN HCL [Glucophage] 500 mg PO BID 01/01/19 [History] Aspirin 325 mg PO DAILY #30 tab 07/11/19 [Rx] Nitroglycerin Sl Tabs [Nitrostat] 0.4 mg SUBLINGUAL Q5M PRN #10 tab 07/11/19 [Rx] Follow up Appointment(s)/Referral(s): Antonette Ruiz MD [Primary Care Provider] - 1-2 days Nain Kearns DO [STAFF PHYSICIAN] - 1 Week Julián Garcia MD [STAFF PHYSICIAN] - 1 Week Activity/Diet/Wound Care/Special Instructions: Diet: Heart healthy Follow-up PCP within 1-2 days of discharge. Follow-up with neurology Dr. Kearns within 1 week of discharge. Follow-up with cardiology Dr. Garcia within 1 week of discharge. Take all medications as advised. Come back to the ED for chest pain, shortness of breath, palpitations, dizziness or worsening blurry vision.
[2019-07-11 12:17] VITALS: BP 123/80; PULSE 58; TEMP 98.4
--- NOTE | 2019-07-11 14:41 | CONS ---
CONSULTATION CHIEF COMPLAINT: Chest pain. Annalisa is a 54-year-old lady with history of bki-wqrwipx-misljmifn diabetes and hypertension and dyslipidemia who presented to the hospital with chest pain and an episode of double vision. Her chest discomfort is sharp, precordial, left-sided, unrelated to exertion and not associated with diaphoresis. She describes it as a pain and tightness. She also had an episode of double vision, the exact etiology of which is unclear. Her main concern was that when she came in. She has not had any further episodes of chest pain since being admitted. The patient has a history of cavernous hemangioma and also has fibromyalgia. EKG does not reveal ischemic changes. Cardiac enzymes have been negative. PAST MEDICAL HISTORY: Significant for kat-lfbxsip-ymlwnqttb diabetes and hypertension. CURRENT MEDICATIONS: Include aspirin, albuterol, Mevacor, Glucophage, Atarax, Dyazide, Zantac, and Zestril. ALLERGIES: The patient is allergic to BANANA. FAMILY HISTORY: Negative for premature coronary artery disease. SOCIAL HISTORY: Negative for smoking, EtOH abuse, or drug abuse. REVIEW OF SYSTEMS: HEENT is unremarkable. CARDIAC: As described above. RESPIRATORY: As described. GI: Negative. GENITOURINARY: Negative. ALLERGY: Negative. SKIN: Negative. MUSCULOSKELETAL: Negative. DERM: Negative. V[employer] SERVICES SPECIALIST: As described above. PSYCHOSOCIAL: Negative. Rest of the system review is not relevant. EXAM: Comfortable at rest. Vital signs are stable. There is no jugular venous distention. Carotid upstroke is normal. There is no bruit. Chest exam reveals good air entry bilaterally. Heart exam reveals first and second heart sounds. No gallop. No murmur. Abdomen is soft, nontender. Examination of extremities did not reveal any edema. Peripheral pulses are felt. EKG shows normal sinus rhythm. Cardiac enzymes have been negative. Hemoglobin is normal at 15.3, creatinine is 0.6, potassium is 4.5. Tropes are negative. LDL cholesterol is 73. ASSESSMENT: 1. Precordial chest pain. 2. Dizziness and double vision. 3. Hypertension. PLAN: I am going to obtain a stress echo on her tomorrow. If this is negative, no further cardiac workup is needed at this time. MMODL / IJN: [id number] /
== END 2019-07-11 12:50 | disposition home or self-care (01) ==
LOC: EC 13:14 → 1SOBS 16:52
PROVIDERS: ADMIT Family Medicine; ATTEND Family Medicine
DX: R07.2 Precordial pain (principal); H53.8 Other visual disturbances; H53.2 Diplopia; R00.2 Palpitations; R42 Dizziness and giddiness; R61 Generalized hyperhidrosis; R60.0 Localized edema; G43.909 Migraine, unspecified, not intractable, without status migrainosus; G93.2 Benign intracranial hypertension; I10 Essential (primary) hypertension; E11.9 Type 2 diabetes mellitus without complications; J45.909 Unspecified asthma, uncomplicated; J41.0 Simple chronic bronchitis; M79.7 Fibromyalgia; D18.02 Hemangioma of intracranial structures; E78.5 Hyperlipidemia, unspecified; K21.9 Gastro-esophageal reflux disease without esophagitis; F41.9 Anxiety disorder, unspecified; F32.9 Major depressive disorder, single episode, unspecified; F43.10 Post-traumatic stress disorder, unspecified; F17.200 Nicotine dependence, unspecified, uncomplicated; Z79.899 Other long term (current) drug therapy; Z79.84 Long term (current) use of oral hypoglycemic drugs; Z91.018 Allergy to other foods; Z87.19 Personal history of other diseases of the digestive system; Z84.1 Family history of disorders of kidney and ureter
CPT/HCPCS: 99285; 36415; 94640; 93005; 80061; 80053; 83690; 83735; 84484 ×2; 85025; 85610; 85730; 71046; G0378 ×2

== ENCOUNTER → 2019-11-27 | Outpatient (CLI) | payer BC ==
[2019-11-27 09:01] LABS: Potassium 4.2 mmol/L (3.5-5.1)
[2019-11-27 09:02] LABS: African American GFR (CKD) >90 (>60 ml/min/1.73 sqM); Anion Gap 7 mmol/L; Blood Urea Nitrogen 13 mg/dL (7-17); Carbon Dioxide 31 mmol/L (22-30); Chloride 103 mmol/L (98-107); Non-African American GFR(CKD) >90 (>60 ml/min/1.73 sqM); Sodium 141 mmol/L (137-145)
[2019-11-27 09:23] LABS: HCT 49.5 % (34.0-46.0); HGB 16.4 gm/dL (11.4-16.0); MCH 30.4 pg (25.0-35.0); MCHC 33.2 g/dL (31.0-37.0); MCV 91.4 fL (80.0-100.0); Mean Platelet Volume 7.7; Platelet Count 283 k/uL (150-450); RBC 5.41 m/uL (3.80-5.40); RDW 12.6 % (11.5-15.5); WBC 11.8 k/uL (3.8-10.6)
== END | disposition home or self-care (01) ==
LOC: LABPAT 08:22
PROVIDERS: ATTEND Internal Medicine Interventional Cardiology
DX: Z01.812 Encounter for preprocedural laboratory examination (principal); R94.39 Abnormal result of other cardiovascular function study
CPT/HCPCS: 36415; 80051; 82565; 84520; 85027

== ENCOUNTER 2019-11-29 10:51 | Day surgery (SDC) | payer BC ==
[2019-11-25 12:54] VITALS: BMI 34.4
[~2019-11-29 10:51] MED LIST changes: +ALPRAZolam 0.25 MG TAB PO PRN; +ALPRAZolam 0.5 MG TAB PO PRN; +ASPIRIN 325 MG TAB PO STA; +ATORVASTATIN 80 MG TAB PO STA; -LACTATED RINGERS 1,000 ML IV SCH; +NITROGLYCERIN SL TABS 0.4 MG TAB SUBLINGUAL PRN; +SODIUM CHLORIDE 0.9% 1,000 ML in EMPTY BAG 1 BAG IV ONE
[2019-11-29 11:45] LABS: Glucose,Whole Blood 141 mg/dL (75-99)
[2019-11-29] MEDS ORDERED: MIDAZOLAM 2 MG/2 ML VIAL IV ONE (12:50)
[2019-11-29] MEDS ORDERED: LIDOCAINE 1% INJ 10MG/ML (20 ML MDV) SQ ONE ×2 (12:55→12:57)
[2019-11-29] MEDS ORDERED: VERAPAMIL SYRINGE (5 MG/10 ML) INTRAARTER ONE ×2 (12:57→12:59)
[2019-11-29] MEDS ORDERED: fentaNYL (PF) 50 MCG/ML 2 ML AMP IV ONE (13:01)
[2019-11-29] MEDS ORDERED: HYDROmorphone 1 MG/ML 1 ML SYRINGE IVP ONE (13:06)
[2019-11-29 13:09] VITALS: RESP 14
[2019-11-29] MEDS ORDERED: RX INFO: IV CONTRAST WAS GIVEN 1 EACH MISC MISCELLANE PRN (13:13)
[2019-11-29] MEDS ORDERED: SODIUM CHLORIDE 0.9% 1,000 ML IV SCH (13:15)
[2019-11-29] MEDS ORDERED: IOPAMIDOL-370 125ML BTL INJ ONE (13:15)
[2019-11-29 13:49] VITALS: TEMP 98.4
[2019-11-29 15:37] VITALS: PULSE 78
[2019-11-29 15:38] VITALS: BP 111/65
--- NOTE | 2019-11-29 17:03 | CC ---
CARDIAC CATHETERIZATION REPORT DATE OF SERVICE: November 29, 2019. PERFORMING PHYSICIAN: Julián Garcia MD. PROCEDURE PERFORMED: 1. Selective right and left coronary angiogram. 2. Left heart catheterization. INDICATIONS: This is a 54-year-old female patient who is a smoker as well as diabetic, who was experiencing intermittent episodes of chest discomfort and she underwent myocardial perfusion imaging stress test and that revealed an anterior ischemia. Because of that, a heart catheterization was advised. APPROACH: Right radial artery. COMPLICATION: None. LEVEL OF SEDATION: Moderate with sedation length of 18 minutes. PROCEDURE DESCRIPTION: After obtaining an informed consent, the patient was brought to the cardiac laborer hoisting. The right radial artery was cannulated using micropuncture technique, the micropuncture wire passed easily. Then I did place a 5-Namibian sheath in the right radial artery. After that, I did selective right and left coronary angiogram using JR4 and JL3.5 catheters. Left heart catheterization was performed using 5-Namibian pigtail catheter. The procedure was completed without any complication. SELECTIVE CORONARY ANGIOGRAM: 1. The right coronary artery is a large caliber vessel. It is a dominant vessel, appeared to have intermediate lesion in the proximal portion seems to be in the range of 40%. 2. The left main is angiographically normal. It bifurcates into LCX and LAD. 3. The LCX is a large caliber vessel. It is a nondominant vessel. The LCX is angiographically normal. In the midportion, gives rise into an OM branch which seems to be normal. 4. The ramus intermedius is a moderate caliber vessel and seems to be angiographically normal. 5. The LAD is a large caliber vessel. It is angiographically normal. In the proximal portion gives rise into a large diagonal branch which seems to be normal. HEMODYNAMICS: The LVEDP was 4-6 mmHg without significant gradient across the aortic valve. CONCLUSION: 1. 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 2. Normal left ventricular end-diastolic pressure. POSTPROCEDURE MANAGEMENT: 1. Medical treatment. 2. Follow up with the patient. MMMAGDYL / CHAKAN: [id number] /
== END 2019-11-29 17:30 | disposition home or self-care (01) ==
LOC: CATHCVL 10:51 → 1SOBS 13:31 → CATHCVL 17:30
PROVIDERS: ATTEND Internal Medicine Interventional Cardiology
DX: I25.110 Atherosclerotic heart disease of native coronary artery with unstable angina pectoris (principal); I10 Essential (primary) hypertension; E78.00 Pure hypercholesterolemia, unspecified; E11.9 Type 2 diabetes mellitus without complications; E78.5 Hyperlipidemia, unspecified; G89.29 Other chronic pain; M79.7 Fibromyalgia; F17.210 Nicotine dependence, cigarettes, uncomplicated; Z79.51 Long term (current) use of inhaled steroids; Z79.82 Long term (current) use of aspirin; Z79.84 Long term (current) use of oral hypoglycemic drugs; Z79.899 Other long term (current) drug therapy; Z82.49 Family history of ischemic heart disease and other diseases of the circulatory system
CPT/HCPCS: 93458; C1769; C1894; J2250; J2001; J3010; J1170; J1644; Q9967

== ENCOUNTER → 2020-05-30 | Outpatient (CLI) | payer BC ==
[2020-05-30 18:47] LABS: African American GFR (CKD) >90 (>60 ml/min/1.73 sqM); Blood Urea Nitrogen 17 mg/dL (7-17); Non-African American GFR(CKD) >90 (>60 ml/min/1.73 sqM)
--- NOTE | 2020-05-31 06:46 | CT ---
EXAMINATION TYPE: CT abdomen w con DATE OF EXAM: 05/30/2020 HISTORY: LUQ pain, hx of hernia repair CT DLP: 1283.2mGycm Automated Exposure Control for Dose Reduction was Utilized. CONTRAST: CT scan of the abdomen is performed with oral and with IV Contrast, patient injected with 100 mL of I sovue 300. COMPARISON: Prior CT May 16, 2015 FINDINGS: LUNG BASES: No significant abnormality is appreciated. LIVER/GB: No significant abnormality is appreciated. PANCREAS: No significant abnormality is seen. SPLEEN: No significant abnormality is seen. ADRENALS: No significant abnormality is seen. KIDNEYS: No significant abnormality is seen. BOWEL: Oral contrast only reaches jejunal loops in the left abdomen. There is no suspicious small or large bowel dilatation seen. Normal-appearing appendix seen from base of cecum in the right lower derek drant. Surgical sutures near gastroesophageal junction likely from Derik fundoplication surgery are redemonstrated. LYMPH NODES: No greater than 1cm abdominal lymph nodes are appreciated. OSSEOUS STRUCTURES: Moderate spurring and disc space narrowing and anterior L1-L2 level. OTHER: Metallic coils from ventral wall hernia repair surgery above the umbilicus. No recurrent herni a is evident. IMPRESSION: No recurrent ventral wall hernia. No significant new or acute finding is seen to account for patient's clinical symptoms.
== END | disposition home or self-care (01) ==
LOC: RADCTMAIN 18:01
PROVIDERS: ATTEND Family Medicine
DX: R10.12 Left upper quadrant pain (principal); Z98.890 Other specified postprocedural states
CPT/HCPCS: 82565; 84520; 74160; 36415; Q9967